=== PATIENT | female | born 2000 | race Caucasian/White ===

== ENCOUNTER 2018-09-23 20:27 | Emergency (ER) | payer SELFPAY ==
[~2018-09-23] VITALS: Ht 175.3 cm; Wt 68.0 kg
[~2018-09-23 20:27] MED LIST: OXYC-529 PO
--- NOTE | 2018-09-23 21:08 | ED Neck-Back Pain/Injury ---
General Chief Complaint: Head/Cervical Problems Stated Complaint: NECK PAIN HX OF TUMORS Nursing Triage Note: PT COMPLAINING OF LEFT NECK PAIN. STATES SHE WOKE UP TODAY AND HAS PAIN WHEN TURNING HER HEAD TO THE LEFT. Nursing Sepsis Screen: No Definite Risk History of Present Illness Date Seen by Provider: Sep 23, 2018 Time Seen by Provider: 20:50 Other Comments This is a 18-year-old female with a history of neurofibromatosis here with neck pain when turning her neck since waking today. She can turn her neck to the right side but cannot turn it to the left. She said some waxing and waning headaches although that has resolved at this time. No fever or chills. No visual change, no focal weakness, numbness, or tingling. No injury. Allergies and Home Medications Allergies Coded Allergies: No Known Drug Allergies (Unverified , 02/01/15) Home Medications Cyclobenzaprine HCl 10 Mg Tablet, 10 MG PO BID PRN for SPASMS Prescribed by: MICHAEL SILVESTRE on 09/23/18 8111 Patient Home Medication List Home Medication List Reviewed: Yes Review of Systems Constitutional: no symptoms reported EENTM: no symptoms reported Respiratory: no symptoms reported Cardiovascular: no symptoms reported Gastrointestinal: no symptoms reported Genitourinary: no symptoms reported Musculoskeletal: see HPI Skin: no symptoms reported Psychiatric/Neurological: See HPI Past Ronsveo-Ynyaml-Dqnfwj Hx Past Med/Social Hx: Reviewed Nursing Past Med/Soc Hx Patient Social History Recent Foreign Travel: No Contact w/Someone Who Travel: No Recent Infectious Disease Expo: No Recent Hopitalizations: No Immunizations Up To Date PED Vaccines UTD: Yes Seasonal Allergies Seasonal Allergies: No Past Medical History Surgeries: Yes (TUMOR FROM R EAR,LEG, AND BREAST, BRIAN FROM THROAT, TUBES IN EARS) Neurological: Yes (NEUROFIBROMATOSIS) Physical Exam Vital Signs Vital Signs - First Documented 09/23/18 20:36 Temp 97.0 Pulse 81 Resp 18 B/P (MAP) 133/98 (110) Pulse Ox 100 O2 Delivery Room Air Capillary Refill : Less Than 3 Seconds Height, Weight, BMI Height: 5'9.00" Weight: 150lbs. oz. 68.593935xa; 26.47 BMI Method:Stated General Appearance: No Apparent Distress HEENT: TMs Normal, Pharynx Normal, Moist Mucous Membranes Neck: Other (normal range of motion with rightward rotation, limited leftward rotation beyond about 10 from midline, normal flexion and extension, no adenopathy, no bruit, mild nonspecific tenderness in the right sternocleidomastoid and left trapezius ridge) Cardiovascular: Regular Rate, Rhythm, Normal Peripheral Pulses Respiratory: Lungs Clear Gastrointestinal: Non Tender, Soft Neurologic/Psychiatric: Alert, Oriented x3, No Motor/Sensory Deficits, Normal Mood/Affect, instructor physical II-XII Norm as Tested; No Abnormal Cerebellar Tests Skin: Warm/Dry Progress/Results/Core Measures Results/Orders My Orders Orders - MICHAEL SILVESTRE DO Hydrocodone/Apap 5/325 Tablet (Lortab 5 (09/23/18 21:15) Cervical Spine 3 View Or Less (09/23/18 21:02) Medications Given in ED Current Medications Medications Dose Ordered Sig/Fabrice Route Start Time Stop Time Status Last Admin Dose Admin Acetaminophen/ Hydrocodone Bitart 1 tab ONCE ONCE PO 09/23/18 21:15 09/23/18 21:16 DC 09/23/18 21:08 1 TAB Vital Signs/I&O 09/23/18 09/23/18 20:36 22:35 Temp 97.0 Pulse 81 78 Resp 18 20 B/P (MAP) 133/98 (110) 125/75 (92) Pulse Ox 100 99 O2 Delivery Room Air Room Air Blood Pressure Mean: 110 Progress Progress Note : Progress Note 18-year-old female with a history of neurofibromatosis here with atraumatic neck pain, difficulty turning her head to the left side. No neurologic deficits or headache or fever, no bruits. She is well-appearing. X-rays were obtained for low suspicion of bony abnormality like a jumped facet or pathological fracture, or for possible soft tissue swelling although physical exam was unremarkable, no difficulty swallowing or pain with swallowing. Imaging was negative. She'll follow-up with her primary care physician on Wednesday and will return for any new or worsening symptoms immediately. Departure Impression Primary Impression: Torticollis, acute Disposition: 01 HOME, SELF-CARE Condition: Stable Departure-Patient Inst. Referrals: NO,LOCAL PHYSICIAN (PCP) Primary Care Physician Patient Instructions: Torticollis, Adult Scripts Cyclobenzaprine HCl (Cyclobenzaprine HCl) 10 Mg Tablet 10 MG PO BID PRN for SPASMS for 7 Days, #20 TAB Prov: MICHAEL SILVESTRE DO 09/23/18 MICHAEL SILVESTRE DO Sep 23, 2018 21:08
[2018-09-23] MEDS ORDERED: HYDROcodone/APAP 5 MG/325 MG (LORTAB) TAB PO ONE (21:15)
--- NOTE | 2018-09-23 22:04 | Diagnostic Imaging Report ---
INDICATION: Left-sided neck pain Cervical spine AP and lateral views of the cervical spine show normal vertebral body height and alignment. 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 There is no fracture or prevertebral soft tissue swelling. 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 No acute abnormality seen. Dictated by: Dictated on workstation # [id number]
[2018-09-23] MEDS ORDERED: CYCL10TA9 PO (22:19)
[2018-09-23 22:35] VITALS: BP 125/75
== END 2018-09-23 22:35 | disposition home or self-care (01) ==
LOC: EDUNIT# 20:27 → ER FS 20:29
DX: M43.6 Torticollis (principal); Z86.69 Personal history of other diseases of the nervous system and sense organs; Z86.018 Personal history of other benign neoplasm; Z96.22 Myringotomy tube(s) status
CPT/HCPCS: 72040

== ENCOUNTER 2018-10-12 23:09 | Emergency (ER) | payer SELFPAY ==
[~2018-10-12] VITALS: Ht 175.3 cm; Wt 68.0 kg
[~2018-10-12 23:09] MED LIST changes: +CYCL10TA9 PO
[2018-10-13] MEDS ORDERED: NS IV 1000 ML 1,000 ML IV SCH (00:44)
[2018-10-13] MEDS ORDERED: ACETAMINOPHEN 500 MG TAB (TYLENOL) PO ONE (00:45)
[2018-10-13] MEDS ORDERED: KETOROLAC 30 MG/ML VIAL IVP ONE (00:45)
--- NOTE | 2018-10-13 00:52 | ED Headache ---
General Chief Complaint: Head/Cervical Problems Stated Complaint: HEADACHE Nursing Triage Note: PT STATES SHE HAS EXPERIENCED HEADACHES D/T HER TUMORS THAT HAVE BEEN CAUSING INCREASED PAIN FOR THE LAST WEEK. PT REPORTS USING A FRIENDS TRAMADOL, 20MG PO. REPORTS PAIN IS UNCHANGED. PT STATES SHE HAS BEEN EXPERIENCING DOUBLE VISION AND INTERMITTENT NAUSEA DURING THIS WEEK WELL Nursing Sepsis Screen: No Definite Risk Source: patient, other Exam Limitations: no limitations History of Present Illness Date Seen by Provider: Oct 13, 2018 Time Seen by Provider: 00:36 Initial Comments Patient presents to ER by private conveyance with chief complaint she's had a headache constantly for the past week bilateral temporal regions. It is achy, sharp, stabbing and radiates towards her back occipital. She's having no visual changes, gait instability, weakness, numbness, tingling. She has more angry and extremely more with her roommate. The last time she had a personality change she had a scan done at [facility] year and a half ago for her headache and they discovered that in addition to neurofibromatosis the patient also had a tumor which was described as brain cancer. The patient says she never followed up because her mom move 2 hours away and did not set up appointments for her. She's been using ibuprofen today with no benefit for her pain as well as tramadol which she said made the headache worse. She's having no nausea presently but she did have some earlier in the week. She denies dysuria. She's not on control. Her last menstrual period started yesterday. Other than neurofibromatosis she has no other significant medical or surgical history. 2014 the patient was seen in this ER for headaches but at the time she informed the ER doctor that she had some type of brain tumor that was told by her neurosurgeon at [facility] in [place] that they doubt that he had anything to do with her headaches. She was referred by the neurologist back to a neurosurgeon. The mother who accompanied the patient states that the headaches are not migraines but they're prescribed migraine headaches. They're also referred to pain management. She stated that the only medication that pro vided her with any relief at that time was oxycodone but they don't want her on a regularly. Allergies and Home Medications Allergies Coded Allergies: No Known Drug Allergies (Unverified , 02/01/15) Home Medications Cyclobenzaprine HCl 10 Mg Tablet, 10 MG PO BID PRN for SPASMS Prescribed by: MICHAEL SILVESTRE on 09/23/18 7486 Patient Home Medication List Home Medication List Reviewed: Yes Review of Systems Review of Systems Constitutional: No chills, No diaphoresis, No weight gain, No weight loss Eyes: Denies Blindness, Denies Blurred Vision, Denies Drainage Ears, Nose, Mouth, Throat: denies ear pain, denies ear discharge Respiratory: No cough, No short of breath Cardiovascular: No chest pain, No edema Gastrointestinal: No abdominal pain, No constipation : No LMP: Oct 12, 2018 Past Tlznpyi-Qocach-Tlxzzq Hx Patient Social History Alcohol Use: Denies Use Recreational Drug Use: No Smoking Status: Never a Smoker Recent Foreign Travel: No Contact w/Someone Who Travel: No Recent Infectious Disease Expo: No Recent Hopitalizations: No Immunizations Up To Date Tetanus Booster (TDap): Unknown PED Vaccines UTD: Yes Seasonal Allergies Seasonal Allergies: No Past Medical History Surgeries: Yes (TUMOR FROM R EAR,LEG, AND BREAST, BRIAN FROM THROAT, TUBES IN EARS) Respiratory: No Cardiac: No Neurological: Yes (NEUROFIBROMATOSIS) : No Genitourinary: No Gastrointestinal: No Musculoskeletal: No Endocrine: No HEENT: No Cancer: Yes Breast Did You Recieve Any Treatments: Yes What Type of Treatment Did You: Surgical Intervention Psychosocial: No Integumentary: No Blood Disorders: No Adverse Reaction/Blood Tranf: No Physical Exam Vital Signs Vital Signs - First Documented 10/12/18 23:29 Temp 96.7 Pulse 92 Resp 18 B/P (MAP) 134/93 (107) Pulse Ox 100 O2 Delivery Room Air Capillary Refill : Less Than 3 Seconds Height, Weight, BMI Height: 5'9.00" Weight: 150lbs. oz. 68.911253ix; 26.47 BMI Method:Stated General Appearance: WD/WN, no apparent distress HEENT: PERRL/EOMI, normal ENT inspection, TMs normal, pharynx normal Neck: non-tender, full range of motion, supple, normal inspection Cardiovascular: normal peripheral pulses, regular rate, rhythm, no edema Respiratory: lungs clear, normal breath sounds, no respiratory distress, no ac cessory muscle use Gastrointestinal: normal bowel sounds, non tender, soft Psychiatric: alert, oriented x 3 Crainal Nerves: normal hearing, normal speech, PERRL Coordination/Gait: normal gait Motor/Sensory: no motor deficit, no sensory deficit, no pronator drift Skin: normal color, warm/dry Progress/Results/Core Measures Results/Orders Lab Results Laboratory Tests Test 10/13/18 00:43 10/13/18 01:01 Range/Units Urine Color YELLOW Urine Clarity SLIGHTLY CLOUDY Urine pH 6 5-9 Urine Specific [place] 1.025 H 1.016-1.022 Urine Protein 1+ H NEGATIVE Urine Glucose (UA) NEGATIVE NEGATIVE Urine Ketones NEGATIVE NEGATIVE Urine Nitrite NEGATIVE NEGATIVE Urine Bilirubin NEGATIVE NEGATIVE Urine Urobilinogen 1 NORMAL MG/DL Urine Leukocyte Esterase 1+ H NEGATIVE Urine RBC (Auto) 5+ H NEGATIVE Urine RBC TNTC H /HPF Urine WBC 2-5 /HPF Urine Squamous Epithelial Cells 5-10 /HPF Urine Crystals NONE /LPF Urine Bacteria TRACE /HPF Urine Casts NONE /LPF Urine Mucus SMALL H /LPF Urine Culture Indicated NO Urine Opiates Screen NEGATIVE NEGATIVE Urine Oxycodone Screen NEGATIVE NEGATIVE Urine Methadone Screen NEGATIVE NEGATIVE Urine Propoxyphene Screen NEGATIVE NEGATIVE Urine Barbiturates Screen NEGATIVE NEGATIVE Ur Tricyclic Antidepressants Screen NEGATIVE NEGATIVE Urine Phencyclidine Screen NEGATIVE NEGATIVE Urine Amphetamines Screen NEGATIVE NEGATIVE Urine Methamphetamines Screen NEGATIVE NEGATIVE Urine Benzodiazepines Screen NEGATIVE NEGATIVE Urine Cocaine Screen NEGATIVE NEGATIVE Urine Cannabinoids Screen NEGATIVE NEGATIVE White Blood Count 7.5 4.3-11.0 10^3/uL Red Blood Count 4.81 4.35-5.85 10^6/uL Hemoglobin 13.4 11.5-16.0 G/DL Hematocrit 41 35-52 % Mean Corpuscular Volume 84 80-99 FL Mean Corpuscular Hemoglobin 28 25-34 PG Mean Corpuscular Hemoglobin Concent 33 32-36 G/DL Red Cell Distribution Width 12.7 10.0-14.5 % Platelet Count 326 130-400 10^3/uL Mean Platelet Volume 9.6 7.4-10.4 FL Neutrophils (%) (Auto) 50 42-75 % Lymphocytes (%) (Auto) 36 12-44 % Monocytes (%) (Auto) 11 0-12 % Eosinophils (%) (Auto) 3 0-10 % Basophils (%) (Auto) 1 0-10 % Neutrophils # (Auto) 3.8 1.8-7.8 X 10^3 Lymphocytes # (Auto) 2.7 1.0-4.0 X 10^3 Monocytes # (Auto) 0.8 0.0-1.0 X 10^3 Eosinophils # (Auto) 0.2 0.0-0.3 10^3/uL Basophils # (Auto) 0.1 0.0-0.1 10^3/uL Erythrocyte Sedimentation Rate 6 0-20 MM/HR Sodium Level 138 135-145 MMOL/L Potassium Level 4.1 3.6-5.0 MMOL/L Chloride Level 104 98-107 MMOL/L Carbon Dioxide Level 23 21-32 MMOL/L Anion Gap 11 5-14 MMOL/L Blood Urea Nitrogen 6 L 7-18 MG/DL Creatinine 0.76 0.60-1.30 MG/DL Estimat Glomerular Filtration Rate > 60 BUN/Creatinine Ratio 8 Glucose Level 91 70-105 MG/DL Calcium Level 9.4 8.5-10.1 MG/DL Corrected Calcium 9.1 8.5-10.1 MG/DL Total Bilirubin 0.4 0.1-1.0 MG/DL Aspartate Amino Transf (AST/SGOT) 13 5-34 U/L Alanine Aminotransferase (ALT/SGPT) 8 0-55 U/L Alkaline Phosphatase 59 40-136 U/L C-Reactive Protein High Sensitivity 0.02 0.00-0.50 MG/DL Total Protein 7.3 6.4-8.2 GM/DL Albumin 4.4 3.2-4.5 GM/DL My Orders Orders - MERLY CORTEZ Cbc With Automated Diff (10/13/18 00:44) Comprehensive Metabolic Panel (10/13/18 00:44) Hs C Reactive Protein (10/13/18 00:44) Erythrocyte Sedimentation Rate (10/13/18 00:44) Ct Head Wo (10/13/18 00:44) Ed Iv/Invasive Line Start (10/13/18 00:44) Ns Iv 1000 Ml (Sodium Chloride 0.9%) (10/13/18 00:44) Ketorolac Injection (Toradol Injection) (10/13/18 00:45) Acetaminophen Tablet (Tylenol Tablet) (10/13/18 00:45) Ua Culture If Indicated (10/13/18 00:56) Urine Bedside (10/13/18 00:56) Drug Screen Stat (Urine) (10/13/18 00:56) Medications Given in ED Current Medications Medications Dose Ordered Sig/Fabrice Route Start Time Stop Time Status Last Admin Dose Admin Acetaminophen 1,000 mg ONCE ONCE PO 10/13/18 00:45 10/13/18 00:46 DC 10/13/18 00:51 1,000 MG Ketorolac Tromethamine 30 mg ONCE ONCE IVP 10/13/18 00:45 10/13/18 00:46 DC 10/13/18 01:06 30 MG Vital Signs/I&O 10/12/18 23:29 Temp 96.7 Pulse 92 Resp 18 B/P (MAP) 134/93 (107) Pulse Ox 100 O2 Delivery Room Air Blood Pressure Mean: 107 Progress Progress Note #1: Time: 00:51 Progress Note Patient's having a headache so we'll start her some Toradol and Tylenol. She says in the past whenever she got a cocktail of medicines including Benadryl and either Phenergan or Compazine it made her feel like she was crawling out of her skin so we'll avoid that for now. She's never seen headache specialist. She does not follow routinely with a primary care doctor. She gives a history that a year and a half ago she was diagnosed with brain cancer but never followed up. We will is unlikely that she has a brain cancer laying dormant for a year and a half she does give a history for her roommate have some personality changes being very angry for the past week or 2 so despite being neurologically intact we will provide a CT scan of brain. Progress Note #2: Time: 02:14 Progress Note The patient's headache is significantly improved. She's not having any nausea now but will provide her with some Naprosyn and Zofran for home. We will also provide her with a list of local providers and she plans to stick around here. We have suggested that she would follow-up with one of them and get some records put together they can help figure out what seen in the past and where to go from here. We've also suggested that a referral to a headache specialist would be reasonable since her headaches seem to be long lasting and quite dysfunctional. Diagnostic Imaging Diagonstic Imaging: CT (noncontrast) Plain Films/CT/US/NM/MRI: head Comments No acute findings or intracranial process is identified. Reviewed: Reviewed by Me Departure Impression Primary Impression: Headache Qualified Codes: R51 - Headache Disposition: 01 HOME, SELF-CARE Condition: Improved Departure-Patient Inst. Decision time for Depature: 02:15 Referrals: NO,LOCAL PHYSICIAN (PCP/Family) Primary Care Physician Patient Instructions: Headache, Adult (DC), LOCAL PHYSICIAN LIST Add. Discharge Instructions: Drink plenty of fluids get sleep and use the Naprosyn up to twice daily as needed for headache control. You can also use Tylenol 1000 mg every 8 hours as needed for pain relief. Establish care with a primary care doctor and obtain records through their office so that they can review them and help you navigate what to do next. You may consider referral for a headache specialist or other appropriate referrals based on what they find out from your previous [facility] records. If you experience nausea or have vomiting then you can take one tablet of Zofran every 6 hours as needed. All discharge instructions reviewed with patient and/or family. Voiced understanding. Scripts Ondansetron (Ondansetron Odt) 4 Mg Tab.rapdis 4 MG PO Q6H PRN for NAUSEA/VOMITING, #8 TAB 0 Refills Prov: MERLY CORTEZ 10/13/18 Naproxen (Naprosyn) 500 Mg Tablet 500 MG PO BID, #30 TAB 0 Refills Prov: MERLY CORTEZ 10/13/18 MERLY CORTEZ Oct 13, 2018 00:52
[2018-10-13 01:02] LABS: BILIRUBIN,URINE NEGATIVE (NEGATIVE); CLARITY,URINE SLIGHTLY CLOUDY; COLOR,URINE YELLOW; GLUCOSE, URINE (UA) NEGATIVE (NEGATIVE); KETONES,URINE NEGATIVE (NEGATIVE); LEUKOCYTE ESTERASE ,URINE 1+ (NEGATIVE); NITRITE,URINE NEGATIVE (NEGATIVE); PH,URINE 6 (5-9); PROTEIN,URINE 1+ (NEGATIVE); UROBILINOGEN,URINE 1 MG/DL (NORMAL)
[2018-10-13 01:12] LABS: BASOPHILS # (AUTO) 0.1 10^3/uL (0.0-0.1); BASOPHILS % (AUTO) 1 % (0-10); EOSINOPHILS # (AUTO) 0.2 10^3/uL (0.0-0.3); EOSINOPHILS % (AUTO) 3 % (0-10); HEMATOCRIT 41 % (35-52); HEMOGLOBIN 13.4 G/DL (11.5-16.0); LYMPHOCYTES # (AUTO) 2.7 X 10^3 (1.0-4.0); LYMPHOCYTES % (AUTO) 36 % (12-44); MEAN CORPUSCULAR HEMOGLOBIN 28 PG (25-34); MEAN CORPUSCULAR HGB CONC 33 G/DL (32-36); MEAN CORPUSCULAR VOLUME 84 FL (80-99); MEAN PLATELET VOLUME 9.6 FL (7.4-10.4); MONOCYTES # (AUTO) 0.8 X 10^3 (0.0-1.0); MONOCYTES % (AUTO) 11 % (0-12); NEUTROPHILS # (AUTO) 3.8 X 10^3 (1.8-7.8); NEUTROPHILS % (AUTO) 50 % (42-75); PLATELET COUNT 326 10^3/uL (130-400); RED CELL DISTRIBUTION WIDTH 12.7 % (10.0-14.5); WHITE BLOOD COUNT 7.5 10^3/uL (4.3-11.0)
[2018-10-13 01:18] LABS: AMPHETAMINE SCREEN, URINE NEGATIVE (NEGATIVE); BARBITURATE SCREEN URINE NEGATIVE (NEGATIVE); BENZODIAZEPINES SCREEN URINE NEGATIVE (NEGATIVE); CANNABINOID SCREEN, URINE NEGATIVE (NEGATIVE); COCAINE SCREEN URINE NEGATIVE (NEGATIVE); METHADONE STAT NEGATIVE (NEGATIVE); METHAMPHETAMINE SCREEN URINE S NEGATIVE (NEGATIVE); OPIATE SCREEN URINE NEGATIVE (NEGATIVE); OXYCODONE STAT NEGATIVE (NEGATIVE); PROPOXYPHENE STAT NEGATIVE (NEGATIVE); TRICYCLIC ANTIDEPRESSANTS SCRE NEGATIVE (NEGATIVE)
[2018-10-13 01:19] LABS: BACTERIA,URINE TRACE /HPF; RBC,URINE TNTC /HPF
[2018-10-13 01:31] LABS: ERYTHROCYTE SEDIMENTATION RATE 6 MM/HR (0-20)
[2018-10-13 01:39] LABS: ALANINE AMINOTRANSFERASE 8 U/L (0-55); ALBUMIN 4.4 GM/DL (3.2-4.5); ALKALINE PHOSPHATASE 59 U/L (40-136); BILIRUBIN,TOTAL 0.4 MG/DL (0.1-1.0); BUN/CREATININE RATIO 8; CALCIUM 9.4 MG/DL (8.5-10.1); CARBON DIOXIDE 23 MMOL/L (21-32); CHLORIDE 104 MMOL/L (98-107); CREATININE SERUM 0.76 MG/DL (0.60-1.30); GFR ESTIMATED > 60; GLUCOSE 91 MG/DL (70-105); POTASSIUM 4.1 MMOL/L (3.6-5.0); SODIUM 138 MMOL/L (135-145); TOTAL PROTEIN 7.3 GM/DL (6.4-8.2)
[2018-10-13] MEDS ORDERED: ONDA4TAB11 PO (02:19)
[2018-10-13] MEDS ORDERED: NAPR-1071 PO (02:19)
[2018-10-13 02:26] VITALS: BP 127/93
--- NOTE | 2018-10-13 06:34 | Diagnostic Imaging Report ---
PROCEDURE: CT head without contrast. TECHNIQUE: Multiple contiguous axial images were obtained through the brain without the use of intravenous contrast. Auto Exposure Controls were utilized during the CT exam to meet ALARA standards for radiation dose reduction. INDICATION: Headache There are no prior studies available for comparison. There is no mass, shift of the midline or hemorrhage to suggest an acute intracranial abnormality. The ventricles are not abnormally dilated. The bone windows show no evidence for a fracture or for a destructive lesion. The sinuses, where visualized, are clear. The orbits are symmetrical and within normal limits. IMPRESSION: 1. There is no evidence for an acute intracranial abnormality. 2. If clinical concern regarding an underlying abnormality persists, then MRI would be recommended for further study. Dictated by: Dictated on workstation # [id number]
== END 2018-10-13 02:26 | disposition home or self-care (01) ==
LOC: EDUNIT# 23:09 → ER 23:12
DX: R51 Headache (principal); Z85.3 Personal history of malignant neoplasm of breast; Z86.018 Personal history of other benign neoplasm
CPT/HCPCS: 36415; 70450; 80053; 80306; 81000; 84703; 85025; 85652; 86141

== ENCOUNTER 2020-11-16 19:07 | Emergency (ER) | payer OTHER ==
[~2020-11-16] VITALS: Ht 172 cm; Wt 63.5 kg
[~2020-11-16 19:07] MED LIST changes: +NAPR-1071 PO; +ONDA4TAB11 PO; +OXC5T PO; -OXYC-529 PO
--- NOTE | 2020-11-16 19:27 | ED Headache ---
General Chief Complaint: Head/Cervical Problems Stated Complaint: HEADACHE, DX WITH BRAIN TUMOR Source: patient Exam Limitations: no limitations History of Present Illness Date Seen by Provider: Nov 16, 2020 Time Seen by Provider: 19:22 Initial Comments To ER with a global headache for about 3 or 4 days. No photophobia no nausea no vomiting no weakness in any extremities. No vision change no difficulty walking. She has frequent headaches. She has a history of neurofibromatosis 1. Secondary to this she has a few intracranial lesions best evaluated on FLAIR sequence MRI. These were historically stable when she followed with neurosurgery at the [facility] though she has not seen them in few years. This headache began similar to her previous headaches which was mild and progressive in nature Timing/Duration: constant Severity/Quality: moderate Location: frontal Prior Headaches/Recent Trauma: frequent headaches Associated Symptoms: denies symptoms; No confusion, No nausea/vomiting Allergies and Home Medications Allergies Coded Allergies: No Known Drug Allergies (Unverified , 02/01/15) Home Medications Cyclobenzaprine HCl 10 Mg Tablet, 10 MG PO BID PRN for SPASMS Prescribed by: MICHAEL SILVESTRE on 09/23/182218 Naproxen 500 Mg Tablet, 500 MG PO BID Prescribed by: MERLY CORTEZ on 10/13/18218 Ondansetron 4 Mg Tab.rapdis, 4 MG PO Q6H PRN for NAUSEA/VOMITING Prescribed by: MERYL CORTEZ on 10/13/18218 Patient Home Medication List Home Medication List Reviewed: Yes Review of Systems Review of Systems Constitutional: see HPI Eyes: No Symptoms Reported Ears, Nose, Mouth, Throat: no symptoms reported Respiratory: no symptoms reported Cardiovascular: no symptoms reported Genitourinary: no symptoms reported Musculoskeletal: no symptoms reported Skin: see HPI Psychiatric/Neurological: No Symptoms Reported Past [id number]-[id number]-Wsuwvg Hx Patient Social History Tobacco Use?: No Substance use?: No Alcohol Use?: No Pt feels they are or have been: No Immunizations Up To Date Tetanus Booster (TDap): Unknown PED Vaccines UTD: Yes Seasonal Allergies Seasonal Allergies: No Past Medical History Surgery/Hospitalization HX: TUMOR REMOVAL R EAR, L BREAST TUMOR. NASAL SURGERY Surgeries: Yes (TUMOR FROM R EAR,LEG, AND BREAST, BRIAN FROM THROAT, TUBES IN EARS) Respiratory: No Cardiac: No Neurological: Yes (NEUROFIBROMATOSIS) Genitourinary: No Gastrointestinal: No Musculoskeletal: No Endocrine: No HEENT: No Cancer: Yes Breast Did You Recieve Any Treatments: Yes What Type of Treatment Did You: Surgical Intervention Psychosocial: No Integumentary: No Blood Disorders: No Adverse Reaction/Blood Tranf: No Physical Exam Vital Signs Capillary Refill : Height, Weight, BMI Height: 5'9.00" Weight: 150lbs. oz. 68.774232by; 26.47 BMI Method:Stated General Appearance: WD/WN, no apparent distress HEENT: PERRL/EOMI, normal ENT inspection, TMs normal, other (Alert and oriented no distress. 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 Region [facility]) Cardiovascular: regular rate, rhythm, no murmur Respiratory: no respiratory distress, no accessory muscle use Gastrointestinal: normal bowel sounds, non tender, soft Psychiatric: alert, oriented x 3 Crainal Nerves: normal hearing, normal speech, PERRL Motor/Sensory: no motor deficit, no sensory deficit Skin: normal color, warm/dry Progress/Results/Core Measures Results/Orders My Orders Orders - CHAZ MALIK APRN Butalbital/Apap/Caffeine Tab (Fioricet T (11/16/20 19:30) Ct Head Wo (11/16/20 19:20) Departure Impression Primary Impression: Headache Additional Impression: Neurofibromatosis, type 1 Disposition: 01 HOME, SELF-CARE Condition: Stable Departure-Patient Inst. Decision time for Depature: 19:27 Referrals: NO,LOCAL PHYSICIAN (PCP/Family) Primary Care Physician Patient Instructions: Headache, Adult (DC) CHAZ MALIK APRN Nov 16, 2020 19:27
[2020-11-16] MEDS ORDERED: ACET/BUTAL/CAFF (FIORICET) TAB PO PRN (19:30)
--- NOTE | 2020-11-16 19:55 | Diagnostic Imaging Report ---
INDICATION: Headaches, known history of neurofibromatosis type I. TECHNIQUE: Multiple contiguous axial images were obtained through the brain without the use of intravenous contrast. Auto Exposure Controls were utilized during the CT exam to meet ALARA standards for radiation dose reduction. COMPARISON: Previous study of 04/17/2019. FINDINGS: There is no extra-axial fluid collection. No intracranial hemorrhage. No intracranial mass or mass effect. No midline shift. The ventricles are normal in size and position. There is no acute parenchymal abnormality in the brain by CT. Calvarial windows appear unremarkable. Orbital contents are normal. Visualized portions of the sinuses are clear. IMPRESSION: No acute intracranial abnormality is visualized. Dictated by: Dictated on workstation # [id number]
[2020-11-16 20:02] VITALS: BP 126/87
== END 2020-11-16 20:01 | disposition home or self-care (01) ==
LOC: EDUNIT# 19:07 → ER 19:11
DX: R51.9 Headache, unspecified (principal); Q85.01 Neurofibromatosis, type 1
CPT/HCPCS: 70450

== ENCOUNTER 2021-03-05 16:14 | Emergency (ER) | payer SELFPAY ==
[~2021-03-05] VITALS: Ht 172.7 cm; Wt 68.0 kg
[~2021-03-05 16:14] MED LIST changes: +CYCL10TA25 PO; -CYCL10TA9 PO
--- NOTE | 2021-03-05 17:18 | ED Lower Extremity ---
General Chief Complaint: Lower Extremity Stated Complaint: R ANKLE SWOLLEN Nursing Triage Note: AMB TO ROOM REPRTS TWISTED Rody KEARNS LAST NIGHT. Source: patient Exam Limitations: no limitations History of Present Illness Date Seen by Provider: Mar 05, 2021 Time Seen by Provider: 17:18 Allergies and Home Medications Allergies Coded Allergies: No Known Drug Allergies (Unverified , 02/01/15) Patient Home Medication List Cyclobenzaprine HCl (Cyclobenzaprine HCl) 10 Mg Tablet, 10 MG PO BID PRN for SPASMS Prescribed by: MICHAEL SILVESTRE on 09/23/182218 Naproxen (Naprosyn) 500 Mg Tablet, 500 MG PO BID Prescribed by: MERLY CORTEZ on 10/13/18218 Ondansetron (Ondansetron Odt) 4 Mg Tab.rapdis, 4 MG PO Q6H PRN for NAUSEA/VOMITING Prescribed by: MERLY CORTEZ on 10/13/18218 Past Gjekjzj-Gtugrg-Adrlum Hx Patient Social History Tobacco Use?: No Substance use?: No Alcohol Use?: No Immunizations Up To Date Tetanus Booster (TDap): Unknown PED Vaccines UTD: Yes First/Initial COVID19 Vaccinat: JAN Second COVID19 Vaccination Ander: FEB COVID19 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 NASAL SURGERY Surgeries: Yes (TUMOR FROM R EAR,LEG, AND BREAST, BRIAN FROM THROAT, TUBES IN EARS) Respiratory: No Cardiac: No Neurological: Yes (NEUROFIBROMATOSIS) Last Menstrual Period: Feb 19, 2021 Genitourinary: No Gastrointestinal: No Musculoskeletal: No Endocrine: No HEENT: No Cancer: Yes Breast Did You Recieve Any Treatments: Yes What Type of Treatment Did You: Surgical Intervention Psychosocial: No Integumentary: No Blood Disorders: No Adverse Reaction/Blood Tranf: No Physical Exam Vital Signs Vital Signs - First Documented 03/05/21 16:54 Temp 37.0 Pulse 98 Resp 18 B/P (MAP) 131/89 (103) Pulse Ox 99 O2 Delivery Room Air Capillary Refill : Less Than 3 Seconds Height, Weight, BMI Height: 5'9.00" Weight: 150lbs. oz. 68.932076ct; 22.00 BMI Method:Stated Progress/Results/Core Measures Results/Orders My Orders Orders - EDSON PERES APRN Ankle, Right, 3 Views (03/05/21 17:18) Vital Signs/I&O 03/05/21 16:54 Temp 37.0 Pulse 98 Resp 18 B/P (MAP) 131/89 (103) Pulse Ox 99 O2 Delivery Room Air Blood Pressure Mean: 103 Departure Impression Primary Impression: Fracture of distal end of fibula Disposition: HOME, SELF-CARE Condition: Improved Departure-Patient Inst. Decision time for Depature: 18:40 Referrals: DONAVON DESIR MD, MICHAEL P MD Patient Instructions: Fibula Fracture Add. Discharge Instructions: Plan: 1. Follow up with orthopedic surgeon of choice. 2. You will be non weight bearing with crutches until you follow up. 3. May take Tylenol or Ibuprofen as needed for pain per package. 4. Keep your foot elevated as much as possible for the next 72 hours to reduce swelling. 5. Avoid getting your splint wet. 6. Return for any new, concerning, or worsening symptoms. All discharge instructions reviewed with patient and/or family. Voiced understanding. EDSON PERES APRN Mar 05, 2021 17:18
--- NOTE | 2021-03-05 18:02 | Diagnostic Imaging Report ---
INDICATION: Fall. Right ankle pain. COMPARISON: None. FINDINGS: Three radiographic views of the right ankle were obtained. There is an obliquely oriented fracture involving the distal fibular shaft. This terminates above the level of the tibiotalar joint space. There is also a longitudinal oriented intra-articular fracture of the posterior malleolus of the distal tibia. There is no significant displacement of fracture fragments. Tibiotalar joint space appears appropriate. No unexpected radiopaque foreign bodies are seen. Note is made of mild to moderate overlying soft tissue swelling and edema. IMPRESSION: Acute fractures of the right tibia and fibula of the right ankle, as described above. Dictated by: Dictated on workstation # [id number]
[2021-03-05 18:55] VITALS: BP 131/89
== END 2021-03-05 18:56 | disposition home or self-care (01) ==
LOC: EDUNIT# 16:14 → ER 16:16
DX: S82.831A Other fracture of upper and lower end of right fibula, initial encounter for closed fracture (principal); X50.1XXA Overexertion from prolonged static or awkward postures, initial encounter
CPT/HCPCS: 29515; 73610

== ENCOUNTER → 2021-03-12 | Outpatient (CLI) | payer SELFPAY ==
--- NOTE | 2021-03-12 14:53 | Diagnostic Imaging Report ---
INDICATION: Right fibular fracture. TECHNIQUE/COMPARISON: AP, oblique, and lateral views of the right ankle were obtained with comparison made to the study of 03/05/2021. FINDINGS: There is no significant change in the mildly angulated fracture involving the distal fibular shaft. There may be very early callus formation; however, the fracture line remains visible. There may also be mild widening of the distal syndesmosis. The ankle joint is otherwise intact. IMPRESSION: The mildly angulated subacute fracture of the distal fibula has stable overall alignment with suggestion of widening at the level of syndesmosis. Dictated by: Dictated on workstation # [id number]
== END ==
LOC: ORTHO 11:01
PROVIDERS: ATTEND Orthopaedic Surgery
DX: S82.831A Other fracture of upper and lower end of right fibula, initial encounter for closed fracture (principal); X58.XXXA Exposure to other specified factors, initial encounter
CPT/HCPCS: 73610; G0463; 99202

== ENCOUNTER → 2021-03-26 | Outpatient (CLI) | payer SELFPAY ==
--- NOTE | 2021-03-26 15:08 | Diagnostic Imaging Report ---
INDICATION: Followup right ankle fracture. Left ankle pain. COMPARISON: 03/12/2021 FINDINGS: Multiple radiographic views of both ankles were obtained. Right ankle: Again identified is nonacute oblique linear fracture of the distal fibular shaft and fracture of the posterior malleolus of the distal tibia. There is no significant bridging callus formation or other evidence of significant interval healing. Fracture fragments are in stable alignment. Stress views shows preservation of the mortise. Left ankle: There is no acute fracture or dislocation of the left ankle. Osseous structures are intact. Joint spaces are maintained. No unexpected radiopaque foreign bodies are seen. IMPRESSION: 1. Stable exam of the right ankle showing fractures of the distal tibia and fibula as above. 2. No new acute fracture or dislocation of the left ankle. Dictated by: Dictated on workstation # [id number]
== END ==
LOC: ORTHO 09:56
PROVIDERS: ATTEND Orthopaedic Surgery
DX: S82.844D Nondisplaced bimalleolar fracture of right lower leg, subsequent encounter for closed fracture with routine healing (principal); X58.XXXD Exposure to other specified factors, subsequent encounter
CPT/HCPCS: 73610; G0463; 99213

== ENCOUNTER → 2021-03-26 | Outpatient (CLI) | payer SELFPAY ==
[2021-03-26 11:36] LABS: HEMATOCRIT 40 % (35-52); HEMOGLOBIN 12.9 g/dL (11.5-16.0); MEAN CORPUSCULAR HEMOGLOBIN 28 pg (25-34); MEAN CORPUSCULAR HGB CONC 32 g/dL (32-36); MEAN CORPUSCULAR VOLUME 87 fL (80-99); MEAN PLATELET VOLUME 9.8 fL (9.0-12.2); PLATELET COUNT 301 10^3/uL (130-400); WHITE BLOOD COUNT 8.3 10^3/uL (4.3-11.0)
[2021-03-26 11:58] LABS: CALCIUM 9.5 MG/DL (8.5-10.1); CREATININE SERUM 0.75 MG/DL (0.60-1.30); POTASSIUM 4.2 MMOL/L (3.6-5.0)
== END ==
LOC: LAB 11:19
PROVIDERS: ATTEND Orthopaedic Surgery
DX: S82.844A Nondisplaced bimalleolar fracture of right lower leg, initial encounter for closed fracture (principal); X58.XXXA Exposure to other specified factors, initial encounter
CPT/HCPCS: 36415; 80048; 85027

== ENCOUNTER 2021-03-27 05:49 | Outpatient (CLI) | payer SELFPAY ==
[~2021-03-27] VITALS: Ht 172.7 cm; Wt 64.5 kg
== END 2021-03-27 14:07 | disposition home or self-care (01) ==
LOC: PREOP 05:49
PROVIDERS: ATTEND Orthopaedic Surgery
DX: Z01.818 Encounter for other preprocedural examination (principal)

== ENCOUNTER 2021-03-31 06:11 | Day surgery (SDC) | payer SELFPAY ==
[~2021-03-31] VITALS: Ht 172.7 cm; Wt 64.5 kg
[2021-03-31] VITALS (12 sets, daily range): BP systolic 129–150; BP diastolic 69–95
[2021-03-31] MEDS ORDERED: ceFAZolin 2 GM IV Premixed 50 ML IV ONE (06:30)
[2021-03-31] MEDS: LACTATED RINGERS 1,000 ML IV PRN ×2 (06:49→10:04)
--- NOTE | 2021-03-31 06:53 | Progress Note-Pre Operative ---
Pre-Operative Progress Note H&P Reviewed The H&P was reviewed, patient examined and no changes noted. Date Seen by Provider: Mar 31, 2021 Time Seen by Provider: 07:00 Date H&P Reviewed: Mar 31, 2021 Time H&P Reviewed: 07:00 Pre-Operative Diagnosis: Fracture right fibula with syndesmosis disruption IRINA DAVIS MD Mar 31, 2021 06:53
[2021-03-31] MEDS ORDERED: MIDAZOLAM 2 MG/2 ML (VERSED) VIAL ONE (07:11)
[2021-03-31] MEDS ORDERED: fentaNYL INJ 100 MCG/2 ML AMP ONE (07:11)
[2021-03-31] MEDS ORDERED: NEO/POLY/BAC (NEOSPORIN) OINT 15 GM TUBE ONE (07:15)
[2021-03-31] MEDS ORDERED: LIDOCAINE/EPI 1%-1:200,000 (XYLOCAINE) 30 ML VIAL ONE (07:15)
[2021-03-31] MEDS ORDERED: BUPIVACAINE 0.25% 30 ML (SENSORCAINE) VIAL ONE (07:15)
[2021-03-31] MEDS ORDERED: LIDOCAINE PF 2% 5 ML (XYLOCAINE) VIAL ONE (08:00)
[2021-03-31] MEDS ORDERED: ONDANSETRON 4 MG/2 ML (SDV) Z0FRAN ONE (08:00)
[2021-03-31] MEDS ORDERED: proPOfol 200 MG/20 ML (DIPRIVAN) VIAL IV ONE ×2 (08:00→08:03)
[2021-03-31] MEDS ORDERED: PROPOFOL INJECTION 0 ML IV ONE (08:03)
[2021-03-31] MEDS ORDERED: fentaNYL INJ 250 MCG/5 ML AMP ONE (08:03)
[2021-03-31] MEDS ORDERED: ONDANSETRON 4 MG/2 ML (SDV) Z0FRAN IVP PRN (09:15)
[2021-03-31] MEDS ORDERED: MEPERIDINE (DEMEROL) INJ 50 MG/ML IVP ONE (09:15)
[2021-03-31] MEDS ORDERED: HYDROcodone/APAP 5 MG/325 MG (LORTAB) TAB PO PRN (09:15)
[2021-03-31] MEDS ORDERED: morphine INJ 10 MG/ML 1ML (SYR OR VIAL) IVP ONE (09:15)
[2021-03-31] MEDS ORDERED: fentaNYL INJ 100 MCG/2 ML AMP IVP ONE (09:15)
[2021-03-31] MEDS ORDERED: SEVOFLURANE (ULTANE) 15 ML INHAL SOLN ONE (09:17)
--- NOTE | 2021-03-31 09:24 | Operative Report - Ortho ---
Operative Report Surgeon (s)/Order Packer Or Packager (s) Surgeon IRINA DAVIS MD Order Packer Or Packager n/a Pre-Operative Diagnosis Fracture right fibula with syndesmosis disruption Post-Operative Diagnosis same Operative Report Date of Procedure: Mar 31, 2021 Name of Procedure Performed: Open reduction internal fixation right distal fibular shaft fracture with syndesmotic stabilization Description & Findings The patient was seen in the preop area and there were no questions or concerns. The leg was marked. She has been n.p.o. since midnight. The patient was taken to the operating room and placed on the operating room table. After administration of general anesthesia a tourniquet was placed on the right thigh. The right foot and lower leg were then prepped and draped in usual sterile manner. The patient was given Ancef 2 g IV preoperativelyThe tourniquet was elevated to 250 mmHg after elevation of the leg for several minutes during prepping. An incision was made over the distal fibula. This was taken down through subtenons tissue. Bleeders were cauterized. The soft tissue was elevated off the distal fibula to the fracture site and above. The fracture site showed some early callus and this was taken down with a curette. The fracture was then mobilized and reduced with a reduction clamp. An 8 hole semitubular plate plate was fashioned to fit the distal fibula. This was secured with a cortical screw distal and proximal to the fracture site. Image was used to visualize the reduction and placement of the plate and screws. Next a second screw was placed proximal to the fracture. Then 2 syndesmotic screws were placed approximately 1.5 cm above the ankle joint then proximal to this through the plate. These were drilled measured and appropriate length screws were placed. This included all 4 cortices. This showed stabilization and reduction of the syndesmosis. This point and additional screws were placed proximally so 3 cortical screws proximally and 1 cortical screw distal with 2 syndesmotic screws distally. The fracture orientation did not allow for a compression screw across fracture site.The fracture was oblique but had a small thin fragment posteriorly. At this point the tourniquet was deflated after 38 minutes. Minimal bleeding was noted. The wound was irrigated with normal saline. The deep layer was closed with 0 Vicryl. Subcutaneous tissue with 2-0 Vicryl. Skin with skin jose. The wound was injected with approximately 45 to 50 mL of 0.25% Marcaine plain with 1% Xylocaine with epinephrine, 50-50.The wound was dressed with antibiotic ointment, Adaptic and 4 x 4's and wrapped with web roll. A posterior and sugar tong splint was then applied to the leg with Ean wraps over the splints. Patient was then transferred to recovery room in good condition she tolerated procedure well. The patient would like to be discharged from postop outpatient surgery. If he is comfortable I feel she can go home. Continue with crutches nonweightbearing. Continue elevation and ice. She was E scribed hydrocodone 5/325 #40 and she can take 1-2 every 4 hours as needed pain. She has a follow-up appointment on Monday 04/02. Call if she has any problems or questions. If she is having increased pain we will keep her overnight for observation. n/a Anesthesia Type General Estimated Blood Loss 30 mL Packing none. Specimen(s) collected/removed None IRINA DAVIS MD Mar 31, 2021 09:24
[2021-03-31] MEDS ORDERED: KETOROLAC 30 MG/ML VIAL ONE (09:35)
[2021-03-31] MEDS ORDERED: KETOROLAC 30 MG/ML VIAL IVP ONE (09:45)
--- NOTE | 2021-03-31 10:08 | Anesthesia-General Post-Op ---
General Patient Condition Mental Status/LOC: Same as Preop Cardiovascular: Satisfactory Nausea/Vomiting: Absent Respiratory: Satisfactory Pain: Controlled Complications: Absent Post Op Complications Complications None Follow Up Care/Instructions Patient Instructions None needed. Anesthesia/Patient Condition Patient Condition Patient is doing well, no complaints, stable vital signs, no apparent adverse anesthesia problems. No complications reported per nursing. CASSIDY CID CRNA Mar 31, 2021 10:08
--- NOTE | 2021-03-31 10:26 | Diagnostic Imaging Report ---
INDICATION: Fluoroscopy for right ankle ORIF. FINDINGS: Fluoroscopy was provided in the OR during right ankle ORIF. There is a lateral plate and numerous screws transfixing the distal fibula. There are two fully threaded syndesmotic screws. 43 seconds of fluoroscopic time was utilized. 3D images were obtained. IMPRESSION: Fluoroscopy for right ankle ORIF. Dictated by: Dictated on workstation # [id number]
[2021-03-31] MEDS ORDERED: ACHD5005 PO (11:15)
== END 2021-03-31 11:30 | disposition home or self-care (01) ==
LOC: SDC 06:11
PROVIDERS: ATTEND Orthopaedic Surgery
DX: S82.844A Nondisplaced bimalleolar fracture of right lower leg, initial encounter for closed fracture (principal); S93.431A Sprain of tibiofibular ligament of right ankle, initial encounter; W10.1XXA Fall (on)(from) sidewalk curb, initial encounter; Z79.891 Long term (current) use of opiate analgesic; Z79.1 Long term (current) use of non-steroidal anti-inflammatories (NSAID); Z79.899 Other long term (current) drug therapy
CPT/HCPCS: 27792; 27829; 76000; 84703; 87081; C1713 ×4

== ENCOUNTER → 2021-04-02 | Outpatient (CLI) | payer SELFPAY ==
[~2021-04-02] MED LIST changes: +ACHD5005 PO
== END ==
LOC: ORTHO 11:17
PROVIDERS: ATTEND Orthopaedic Surgery
DX: S82.842A Displaced bimalleolar fracture of left lower leg, initial encounter for closed fracture (principal); X58.XXXA Exposure to other specified factors, initial encounter

== ENCOUNTER → 2021-04-14 | Outpatient (CLI) | payer SELFPAY ==
--- NOTE | 2021-04-14 10:32 | Diagnostic Imaging Report ---
EXAMINATION: Right ankle at 10:25 AM. INDICATION: Ankle pain, followup fracture. TECHNIQUE: Three views were obtained. FINDINGS: The previous exam of 03/12/2021 noted a mildly angulated subacute fracture of the distal fibula. In the interval since the prior study, the patient has undergone a surgical procedure. There is now an orthopedic plate and screw fixation device along the lateral aspect of the distal fibula. Two orthopedic fixation screws are also seen traversing both the distal tibia and fibula. The orthopedic hardware appears to be in good position. The main fracture fragments are near anatomic in alignment and the fracture line itself is only barely visible. No other fracture or acute bony abnormality is appreciated. The ankle mortise is not widened and the talar dome is smooth. The soft tissues are generally unremarkable. There are skin jose along the lateral aspect of the ankle joint. IMPRESSION: 1. There has been an interval surgical procedure. The orthopedic hardware appears to be in good position and the main fracture fragments of the distal fibula are near anatomic in alignment. 2. There is no acute bony abnormality noted. Dictated by: Dictated on workstation # [id number]
== END ==
LOC: ORTHO 09:57
PROVIDERS: ATTEND Orthopaedic Surgery
DX: S82.844D Nondisplaced bimalleolar fracture of right lower leg, subsequent encounter for closed fracture with routine healing (principal); X58.XXXD Exposure to other specified factors, subsequent encounter
CPT/HCPCS: 73610

== ENCOUNTER → 2021-04-28 | Outpatient (CLI) | payer SELFPAY ==
--- NOTE | 2021-04-28 10:36 | Diagnostic Imaging Report ---
INDICATION: Closed fracture of right ankle. TECHNIQUE/COMPARISON: AP, oblique, and lateral views of the right ankle were obtained with comparison made to the study of 04/14/2021. FINDINGS: The lateral fibular fixation plate and syndesmotic screws remain in place. There has been an increase in callus about the distal fibular shaft. The ankle mortise appears to be intact. There is osseous demineralization about the midfoot and hindfoot. IMPRESSION: Healing internally fixed distal fibular shaft fracture without evidence of acute abnormality or complication. Dictated by: Dictated on workstation # [id number]
== END ==
LOC: ORTHO 10:17
PROVIDERS: ATTEND Orthopaedic Surgery
DX: S82.844D Nondisplaced bimalleolar fracture of right lower leg, subsequent encounter for closed fracture with routine healing (principal); X58.XXXD Exposure to other specified factors, subsequent encounter
CPT/HCPCS: 73610

== ENCOUNTER → 2021-05-12 | Outpatient (CLI) | payer SELFPAY ==
[~2021-05-12] MED LIST changes: +FLUT9.9S NS; +LORA1TAB59 PO; +MECL-149 PO; +SCOP1PAT10 TD
--- NOTE | 2021-05-12 10:31 | Diagnostic Imaging Report ---
INDICATION: Ankle fracture. Followup ORIF. COMPARISON: 04/28/2021 FINDINGS: Multiple radiographic views of the right ankle were obtained and again show postsurgical changes of previous ORIF. Orthopedic side plate and screws are again identified along the lateral distal margins of the fibula. 2 syndesmotic screws are also present. These remain in appropriate position. There is no evidence of periprosthetic fracture or failure. Subtle deformity of the distal fibula is noted consistent with partially healed nonacute fracture. No new acute fracture or dislocation of the right ankle is identified. Tibiotalar joint space is within normal limits. IMPRESSION: 1. Nonacute fracture and expected postsurgical changes of previous right ankle ORIF as above. Dictated by: Dictated on workstation # [id number]
== END ==
LOC: ORTHO 09:47
PROVIDERS: ATTEND Orthopaedic Surgery
DX: S82.844D Nondisplaced bimalleolar fracture of right lower leg, subsequent encounter for closed fracture with routine healing (principal); Z98.890 Other specified postprocedural states; X58.XXXD Exposure to other specified factors, subsequent encounter
CPT/HCPCS: 73610

== ENCOUNTER 2021-05-13 22:23 | Emergency (ER) | payer SELFPAY ==
[~2021-05-13] VITALS: Ht 172 cm; Wt 64.5 kg
[~2021-05-13 22:23] MED LIST changes: -FLUT9.9S NS; -LORA1TAB59 PO; -MECL-149 PO; -SCOP1PAT10 TD
[2021-05-13] MEDS ORDERED: ONDANSETRON 4 MG/2 ML (SDV) Z0FRAN IVP ONE (23:00)
--- NOTE | 2021-05-13 23:18 | ED General ---
General Chief Complaint: Dizziness/Syncope Stated Complaint: HIGH BLOOD PRESSURE, VOMITING, DIZZINESS Nursing Triage Note: PT AMB TO ER WITH C/O DIZZINESS, NAUSEA AND SOB FOR "A WHILE". PT WAS - FOR COVID 4 DAYS AGO. PT ALSO HAD TIB/FIB SURGERY APR 07 Source of Information: Patient History of Present Illness Date Seen by Provider: May 13, 2021 Time Seen by Provider: 22:55 Initial Comments PT ARRIVES VIA POV FROM HOME PT WITH MULTIPLE COMPLAINTS STATES SHE HAS BEEN DIZZY AND NAUSEATED FOR 1 1/2 MONTHS, WORSE THE LAST 2 WEEKS HAS ALSO BEEN HAVING HEADACHES FOR 1 1/2 MONTHS ( CHRONIC HEADACHE COMPLAINTS FOR YEARS) HAS BEEN A LITTLE SHORT OF BREATH FOR THE LAST COUPLE OF WEEKS NO CHEST PAIN NO PALPITATIONS NO COUGH NO FEVER/SWEATS/CHILLS NO BODY ACHES NO LOSS OF TASTE OR SMELL HAS BEEN HAVING VOMITING AND DIARRHEA FOR THE LAST FEW DAYS--VOMITED X 12 --2 DAYS AGO, VOMITED X 1 TODAY; DIARRHEA X 1-2 TIMES TODAY NO ABDOMINAL PAIN NO PROBLEMS EATING OR DRINKING VOIDING A NORMAL AMOUNT AND NO URINARY SYMPTOMS LMP 1 1/2 WEEKS AGO, NORMAL. NO CONTROL DENIES CHRONIC ILLNESSES, BUT HAS NEUROFIBROMATOSIS PER OLD CHART. DOES NOT TAKE ANY DAILY MEDICATIONS PT SUSTAINED A RIGHT FIBULA FRACTURE 03/05/21 AND HAD SURGERY 03/31/21 WITH ORIF, AND PT IS STILL WEARING A BOOT. PT WAS SEEN AT [facility] YESTERDAY FOR THIS PROBLEM AND WAS TOLD SHE HAD FLUID ON HER EARS AND WAS PRESCRIBED STEROIDS, TOOK FIRST DOSE TODAY . DENIES ANY EAR SYMPTOMS OR URI/SINUS SYMPTOMS. NO SORE THROAT. HAS NOT SOUGHT CARE AT ANY OTHER TIME FOR THIS PROBLEM STATES SHE HAD A NEGATIVE COVID-19 TEST LAST Wednesday05/08/21 AT [facility]. PT HAS HAD COVID-19 VACCINE X 2. LAST ONE 02/2021. NO BOOSTER VACCINE NO FLU VACCINE PCP: [facility] Allergies and Home Medications Allergies Coded Allergies: No Known Drug Allergies (Unverified , 02/01/15) Patient Home Medication List Home Medication List Reviewed: Yes Fluticasone Propionate (Flonase Allergy Relief) 9.9 Ml [place].susp, 2 SPRAY NS DAILY Prescribed by: BREEZY BELRTE on 05/14/21 0105 Hydrocodone/Acetaminophen (Hydrocodone-Acetamin 5-325 mg) 1 Each Tablet, 1-2 TAB PO Q4H PRN for PAIN-MODERATE (5-7) Prescribed by: ROBBIE BREEN on 03/31/21 1115 Loratadine/Pseudoephedrine (Claritin-D 12 Hour Tablet) 1 Each Tab.er.12h, 1 EACH PO BID Prescribed by: BREEZY BELTRE on 05/14/21104 Meclizine HCl (Meclizine HCl) 25 Mg Tablet, 50 MG PO Q6 PRN for DIZZINESS Prescribed by: BREEZY BELTRE on 05/14/21104 Scopolamine (Transderm-Scop) 1 Each Patch.td72, 1 EACH TD Q72H Prescribed by: BREEZY BELTRE on 05/14/21104 Review of Systems Review of Systems Constitutional: see HPI; No chills, No diaphoresis; dizziness; No fever, No malaise, No weakness EENTM: see HPI Respiratory: see HPI; No cough; short of breath Cardiovascular: no symptoms reported; No chest pain, No edema, No palpitations, No syncope Gastrointestinal: see HPI; No abdominal pain; diarrhea; No loss of appetite; nausea, vomiting Genitourinary: no symptoms reported Musculoskeletal: no symptoms reported Skin: no symptoms reported Psychiatric/Neurological: See HPI Hematologic/Lymphatic: No Symptoms Reported Immunological/Allergic: no symptoms reported Past Yscbqbj-Prciag-Lcgxmg Hx Patient Social History Tobacco Use?: No Substance use?: No Alcohol Use?: No Pt feels they are or have been: No Immunizations Up To Date Tetanus Booster (TDap): Unknown PED Vaccines UTD: Yes Influenza Vaccine Up-to-Date: No; Not Current First/Initial COVID19 Vaccinat: JAN Second COVID19 Vaccination Ander: FEB Third COVID19 Vaccination Date: JAN 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 R FIBULA FX 03/08/21 WITH SURGERY/ORIF 03/31/[address] DAVIS Surgeries: Yes (TUMOR FROM R EAR,LEG, AND BREAST, BRIAN FROM THROAT, TUBES IN EARS) Breast, Ear Surgery, Nose, Orthopedic Respiratory: No Currently Using CPAP: No Currently Using BIPAP: No Cardiac: No Neurological: Yes (NEUROFIBROMATOSIS) Last Menstrual Period: May 05, 2021 Genitourinary: No Gastrointestinal: No Musculoskeletal: Yes (RIGHT FIBULA FX 03/05/21-SURGERY 03/31/[address] DAVIS) Fractures Endocrine: No HEENT: Yes (EAR SURGERY) Cancer: No Psychosocial: No Integumentary: No Blood Disorders: No Adverse Reaction/Blood Tranf: No Physical Exam Vital Signs Vital Signs - First Documented 05/13/21 22:55 Temp 36.7 Pulse 80 Resp 17 B/P (MAP) 138/87 (104) Capillary Refill : Height, Weight, BMI Height: 5'9.00" Weight: 150lbs. oz. 68.905578ns; 21.00 BMI Method:Stated General Appearance: No Apparent Distress, WD/WN, Other (DOES NOT APPEAR ILL OR TO BE IN ANY DISCOMFORT OR DISTRESS) HEENT: PERRL/EOMI, Pharynx Normal, Moist Mucous Membranes, Other (RIGHT EAC AND TM OBSCURED BY LARGE NEUROFIBROMA. LEFT TM WITH EFFUSION. ) Neck: Full Range of Motion, Normal Inspection, Non Tender, Supple Respiratory: Normal Breath Sounds, No Accessory Muscle Use, No Respiratory Distress Cardiovascular: Regular Rate, Rhythm, No Edema, No JVD, No Murmur, Normal Peripheral Pulses Gastrointestinal: Normal Bowel Sounds, No Organomegaly, No Pulsatile Mass, Non Tender, Soft Back: Normal Inspection, No CVA Tenderness, No Vertebral Tenderness Extremity: Normal Capillary Refill, Normal Inspection, Normal Range of Motion, Non Tender, No Calf Tenderness, No Pedal Edema Neurologic/Psychiatric: Alert, Oriented x3, No Motor/Sensory Deficits, Normal Mood/Affect, supervisor public health nursing II-XII Norm as Tested; No Abnormal Cerebellar Tests Skin: Normal Color (DARK SKINNED); No Rash; Tattoos/Piercings (TATTOOS), Other (EXTENSIVE NEUROFIBROMAS OVER MOST OF BODY. ) Progress/Results/Core Measures Suspected Sepsis SIRS Temperature: Pulse: 80 Respiratory Rate: 17 Laboratory Tests 05/13/21 23:18: White Blood Count 9.4 Blood Pressure 138 /87 Mean: 104 Laboratory Tests 05/13/21 23:18: Creatinine 0.73, INR Comment 1.1, Platelet Count 307, Total Bilirubin 0.5 Results/Orders Lab Results Laboratory Tests Test 05/13/21 23:18 05/13/21 23:34 Range/Units White Blood Count 9.4 4.3-11.0 10^3/uL Red Blood Count 4.50 3.80-5.11 10^6/uL Hemoglobin 12.7 11.5-16.0 g/dL Hematocrit 38 35-52 % Mean Corpuscular Volume 85 80-99 fL Mean Corpuscular Hemoglobin 28 25-34 pg Mean Corpuscular Hemoglobin Concent 33 32-36 g/dL Red Cell Distribution Width 12.4 10.0-14.5 % Platelet Count 307 130-400 10^3/uL Mean Platelet Volume 9.7 9.0-12.2 fL Immature Granulocyte % (Auto) 0 % Neutrophils (%) (Auto) 84 H 42-75 % Lymphocytes (%) (Auto) 12 12-44 % Monocytes (%) (Auto) 3 0-12 % Eosinophils (%) (Auto) 0 0-10 % Basophils (%) (Auto) 0 0-10 % Neutrophils # (Auto) 7.9 H 1.8-7.8 10^3/uL Lymphocytes # (Auto) 1.2 1.0-4.0 10^3/uL Monocytes # (Auto) 0.3 0.0-1.0 10^3/uL Eosinophils # (Auto) 0.0 0.0-0.3 10^3/uL Basophils # (Auto) 0.0 0.0-0.1 10^3/uL Immature Granulocyte # (Auto) 0.0 0.0-0.1 10^3/uL Prothrombin Time 14.4 12.2-14.7 SEC INR Comment 1.1 0.8-1.4 Activated Partial Thromboplast Time 36 H 24-35 SEC D-Dimer 0.10 0.00-0.49 UG/ML Sodium Level 135 135-145 MMOL/L Potassium Level 4.4 3.6-5.0 MMOL/L Chloride Level 104 98-107 MMOL/L Carbon Dioxide Level 20 L 21-32 MMOL/L Anion Gap 11 5-14 MMOL/L Blood Urea Nitrogen 6 L 7-18 MG/DL Creatinine 0.73 0.60-1.30 MG/DL Estimat Glomerular Filtration Rate 118 BUN/Creatinine Ratio 8 Glucose Level 115 H 70-105 MG/DL Calcium Level 9.3 8.5-10.1 MG/DL Corrected Calcium 9.1 8.5-10.1 MG/DL Magnesium Level 2.2 1.6-2.4 MG/DL Total Bilirubin 0.5 0.1-1.0 MG/DL Aspartate Amino Transf (AST/SGOT) 14 5-34 U/L Alanine Aminotransferase (ALT/SGPT) 12 0-55 U/L Alkaline Phosphatase 50 40-136 U/L B-Type Natriuretic Peptide 10.0 <100.0 PG/ML Total Protein 7.5 6.4-8.2 GM/DL Albumin 4.3 3.2-4.5 GM/DL Amylase Level 45 25-125 U/L Lipase 17 8-78 U/L Serum Test, Qualitative NEGATIVE NEGATIVE Urine Color YELLOW Urine Clarity CLEAR Urine pH 8.5 5-9 Urine Specific [place] 1.015 L 1.016-1.022 Urine Protein NEGATIVE NEGATIVE Urine Glucose (UA) NEGATIVE NEGATIVE Urine Ketones NEGATIVE NEGATIVE Urine Nitrite NEGATIVE NEGATIVE Urine Bilirubin NEGATIVE NEGATIVE Urine Urobilinogen 0.2 < = 1.0 MG/DL Urine Leukocyte Esterase 1+ H NEGATIVE Urine RBC (Auto) NEGATIVE NEGATIVE Urine RBC NONE /HPF Urine WBC 2-5 /HPF Urine Squamous Epithelial Cells 2-5 /HPF Urine Crystals NONE /LPF Urine Bacteria TRACE /HPF Urine Casts NONE /LPF Urine Mucus SMALL H /LPF Urine Culture Indicated NO Urine Opiates Screen NEGATIVE NEGATIVE Urine Oxycodone Screen NEGATIVE NEGATIVE Urine Methadone Screen NEGATIVE NEGATIVE Urine Propoxyphene Screen NEGATIVE NEGATIVE Urine Barbiturates Screen NEGATIVE NEGATIVE Ur Tricyclic Antidepressants Screen NEGATIVE NEGATIVE Urine Phencyclidine Screen NEGATIVE NEGATIVE Urine Amphetamines Screen NEGATIVE NEGATIVE Urine Methamphetamines Screen NEGATIVE NEGATIVE Urine Benzodiazepines Screen NEGATIVE NEGATIVE Urine Cocaine Screen NEGATIVE NEGATIVE Urine Cannabinoids Screen NEGATIVE NEGATIVE My Orders Orders - BREEZY BELTRE DO Ed Iv/Invasive Line Start (05/13/21 23:00) Monitor-Rhythm Ecg Trace Only (05/13/21 23:00) Ct Head Wo-R/O Stroke (05/13/21 23:00) Amylase (05/13/21 23:00) Cbc With Automated Diff (05/13/21 23:00) Comprehensive Metabolic Panel (05/13/21 23:00) Drug Screen Stat (Urine) (05/13/21 23:00) Lipase (05/13/21 23:00) Magnesium (05/13/21 23:00) Protime With Inr (05/13/21 23:00) Partial Thromboplastin Time (05/13/21 23:00) Ua Culture If Indicated (05/13/21 23:00) Influenza A & B Antigens (05/13/21 23:00) Ondansetron Injection (Zofran Injectio (05/13/21 23:00) Coronavirus Sars-Cov-2 So 2019 (05/13/21 23:00) Bnp [place] (05/13/21 23:00) Fibrin Degradation Products (05/13/21 23:00) Hcg,Qualitative Serum (05/13/21 23:00) Ekg Tracing (05/13/21 23:00) Chest 1 View, Ap/Pa Only (05/14/21 00:01) Ct Angio Chest W (05/14/21 00:01) Iohexol Injection (Omnipaque 350 Mg/Ml 1 (05/14/21 00:45) Received Contrast (Hold Metformin- Contr (05/14/21 00:45) Sodium Chloride Flush (Catheter Flush Sy (05/14/21 00:45) Ns (Ivpb) (Sodium Chloride 0.9% Ivpb Bag (05/14/21 00:45) Meclizine Tablet (Antivert Tablet) (05/14/21 01:15) Scopolamine Patch (Transderm-Scop Patch) (05/14/21 01:15) Medications Given in ED Current Medications Medications Dose Ordered Sig/Fabrice Route Start Time Stop Time Status Last Admin Dose Admin Iohexol 75 ml ONCE ONCE IV 05/14/21 00:45 05/14/21 00:46 DC 05/14/21 00:41 75 ML Ondansetron HCl 4 mg ONCE ONCE IVP 05/13/21 23:00 05/13/21 23:05 DC 05/13/21 23:27 4 MG Sodium Chloride 10 ml NEEDED PRN IV 05/14/21 00:45 05/14/21 00:41 10 ML Sodium Chloride 100 ml ONCE ONCE IV 05/14/21 00:45 05/14/21 00:46 DC 05/14/21 00:41 80 ML Vital Signs/I&O 05/13/21 22:55 Temp 36.7 Pulse 80 Resp 17 B/P (MAP) 138/87 (104) Capillary Refill : Blood Pressure Mean: 104 Progress Note : Progress Note PPE WORN COVID-19 AND FLU TESTING DONE GIVEN IV FLUIDS AND NAUSEA MEDICATION ALSO GIVEN ANTIVERT AND SCOPOLAMINE FOR DIZZINESS UNEVENTFUL ER STAY ECG Initial ECG Impression Date: May 13, 2021 Initial ECG Impression Time: 23:26 Initial ECG Rate: 82 Initial ECG Rhythm: Normal Sinus Diagnostic Imaging Comments CXR--NO ACUTE PROCESS, PENDING RADIOLOGIST REVIEW CT HEAD--NORMAL/NO ACUTE PROCESS, PER [facility] VIA FAX AT [address]49 CT CHEST ANGIOGRAM--NO ACUTE PROCESS, PER [facility] VIA FAX AT 0052 Reviewed: Reviewed by Me Departure Impression Primary Impression: Serous otitis media Additional Impressions: Neurofibromatosis Dizziness Chronic headache Disposition: HOME, SELF-CARE Condition: Stable Departure-Patient Inst. Decision time for Depature: 01:00 Referrals: ROYAL STEVENSON MD NO,LOCAL PHYSICIAN (PCP) Primary Care Physician [facility] Patient Instructions: Dizziness, Adult ED, Serous Otitis Media Add. Discharge Instructions: SCOPOLAMINE PATCH TO REMAIN IN PLACE FOR 72 HOURS SLOW POSITION CHANGES CONTINUE STEROIDS PRESCRIBED FOLLOW UP WITH [facility] IN 5-7 DAYS FOR FURTHER CARE FOLLOW UP WITH DR. STEVENSON, ENT, FOR FURTHER EVALUATION All discharge instructions reviewed with patient and/or family. Voiced understanding. Scripts Fluticasone Propionate (Flonase Allergy Relief) 9.9 Ml [place].susp 2 SPRAY NS DAILY, #1 EACH 2 SPRAYS PER NOSTRIL DAILY X 2 DAYS THEN 1 SPRAY DAILY Prov: BREEZY BELTRE DO 05/14/21 Loratadine/Pseudoephedrine (Claritin-D 12 Hour Tablet) 1 Each Tab.er.12h 1 EACH PO BID, #30 TAB Prov: BREEZY BELTRE K DO 05/14/21 Meclizine HCl (Meclizine HCl) 25 Mg Tablet 50 MG PO Q6 PRN for DIZZINESS, #15 TAB Prov: ALEXSANDERBREEZY K DO 05/14/21 Scopolamine (Transderm-Scop) 1 Each Patch.td72 1 EACH TD Q72H, #3 PATCH Prov: ALEXSANDERRAVENA K DO 05/14/21 RAVEN BELTREA K May 13, 2021 23:18
[2021-05-13 23:26] LABS: BASOPHILS % (AUTO) 0 % (0-10); EOSINOPHILS % (AUTO) 0 % (0-10); HEMATOCRIT 38 % (35-52); HEMOGLOBIN 12.7 g/dL (11.5-16.0); LYMPHOCYTES # (AUTO) 1.2 10^3/uL (1.0-4.0); LYMPHOCYTES % (AUTO) 12 % (12-44); MEAN CORPUSCULAR HEMOGLOBIN 28 pg (25-34); MEAN CORPUSCULAR HGB CONC 33 g/dL (32-36); MEAN CORPUSCULAR VOLUME 85 fL (80-99); MEAN PLATELET VOLUME 9.7 fL (9.0-12.2); MONOCYTES # (AUTO) 0.3 10^3/uL (0.0-1.0); MONOCYTES % (AUTO) 3 % (0-12); NEUTROPHILS # (AUTO) 7.9 10^3/uL (1.8-7.8); NEUTROPHILS % (AUTO) 84 % (42-75); PLATELET COUNT 307 10^3/uL (130-400); WHITE BLOOD COUNT 9.4 10^3/uL (4.3-11.0)
[2021-05-13 23:38] LABS: ALBUMIN 4.3 GM/DL (3.2-4.5); POTASSIUM 4.4 MMOL/L (3.6-5.0)
[2021-05-13 23:39] LABS: CALCIUM 9.3 MG/DL (8.5-10.1)
[2021-05-13 23:40] LABS: BILIRUBIN,URINE NEGATIVE (NEGATIVE); CLARITY,URINE CLEAR; COLOR,URINE YELLOW; GLUCOSE, URINE (UA) NEGATIVE (NEGATIVE); KETONES,URINE NEGATIVE (NEGATIVE); LEUKOCYTE ESTERASE ,URINE 1+ (NEGATIVE); NITRITE,URINE NEGATIVE (NEGATIVE); PH,URINE 8.5 (5-9); PROTEIN,URINE NEGATIVE (NEGATIVE)
[2021-05-13 23:40] LABS: TOTAL PROTEIN 7.5 GM/DL (6.4-8.2)
[2021-05-13 23:42] LABS: BILIRUBIN,TOTAL 0.5 MG/DL (0.1-1.0)
[2021-05-13 23:44] LABS: CREATININE SERUM 0.73 MG/DL (0.60-1.30)
[2021-05-13 23:47] LABS: MAGNESIUM 2.2 MG/DL (1.6-2.4)
[2021-05-13 23:54] LABS: AMPHETAMINE SCREEN, URINE NEGATIVE (NEGATIVE); BARBITURATE SCREEN URINE NEGATIVE (NEGATIVE); BENZODIAZEPINES SCREEN URINE NEGATIVE (NEGATIVE); CANNABINOID SCREEN, URINE NEGATIVE (NEGATIVE); COCAINE SCREEN URINE NEGATIVE (NEGATIVE); METHADONE STAT NEGATIVE (NEGATIVE); METHAMPHETAMINE SCREEN URINE S NEGATIVE (NEGATIVE); OPIATE SCREEN URINE NEGATIVE (NEGATIVE); OXYCODONE STAT NEGATIVE (NEGATIVE); PROPOXYPHENE STAT NEGATIVE (NEGATIVE); TRICYCLIC ANTIDEPRESSANTS SCRE NEGATIVE (NEGATIVE)
[2021-05-13 23:55] LABS: BACTERIA,URINE TRACE /HPF
[2021-05-13 23:55] LABS: FIBRIN DEGRADATION PRODUCTS 0.1 UG/ML (0.00-0.49); INR 1.1 (0.8-1.4); PROTHROMBIN TIME PATIENT 14.4 SEC (12.2-14.7)
[2021-05-14] MEDS ORDERED: IOHEXOL 350 MG/ML 100 ML (OMNIPAQUE 350) VIAL IV ONE (00:45)
[2021-05-14] MEDS ORDERED: NS 100 ML (IVPB) BAG IV ONE (00:45)
[2021-05-14] MEDS ORDERED: CATHETER FLUSH 10 ML SYR IV PRN (00:45)
[2021-05-14] MEDS ORDERED: HOLD METFORMIN - RECEIVED CONTRAST 20 ML VIAL IV SCH (00:45)
[2021-05-14] MEDS ORDERED: FLUT9.9S NS (01:05)
[2021-05-14] MEDS ORDERED: MECL-149 PO (01:05)
[2021-05-14] MEDS ORDERED: SCOP1PAT10 TD (01:05)
[2021-05-14] MEDS ORDERED: LORA1TAB59 PO (01:05)
[2021-05-14] MEDS ORDERED: SCOPOLAMINE 1.5 MG (TRANSDERM-SCOP) PATCH TD ONE (01:15)
[2021-05-14] MEDS ORDERED: MECLIZINE 25 MG (ANTIVERT) TAB PO ONE (01:15)
[2021-05-14 01:20] VITALS: BP 125/90
--- NOTE | 2021-05-14 07:35 | Diagnostic Imaging Report ---
INDICATION: Dyspnea and dizzy. FINDINGS: Portable chest. The lungs are well-aerated and clear. Heart is not enlarged. No pleural effusions. No mediastinal or hilar adenopathy of pathologic size. IMPRESSION: Normal portable chest. Dictated by: Dictated on workstation # [id number]
--- NOTE | 2021-05-14 07:35 | Diagnostic Imaging Report ---
INDICATION: Dizziness. Nausea. TECHNIQUE: Routine non contrast-enhanced axial images were obtained from the skull base to the vertex. Auto Exposure Controls were utilized during the CT exam to meet ALARA standards for radiation dose reduction COMPARISON: None. FINDINGS: The ventricles and cortical sulci are normal in size and contour. There is no midline shift or mass-effect. No acute intra-axial hemorrhage is seen. There are no abnormal areas of increased or decreased density to suggest acute hemorrhage or edema. No extra-axial masses or collections are present. The bony calvarium is intact. The visualized paranasal sinuses are unremarkable. The mastoid air cells are clear. IMPRESSION: 1. No acute intracranial abnormality. No CT evidence of mass, acute infarct or intracranial hemorrhage. Dictated by: Dictated on workstation # [id number]
--- NOTE | 2021-05-14 07:36 | Diagnostic Imaging Report ---
PROCEDURE: CT angiography of the chest with contrast. TECHNIQUE: Multiple contiguous axial images were obtained through the chest after uneventful bolus administration of intravenous contrast. 3D reconstructed CTA MIP acquisitions were also performed. Auto Exposure Controls were utilized during the CT exam to meet ALARA standards for radiation dose reduction. INDICATION: Dizziness with shortness of breath. History of Covid. FINDING: Good opacification of the aorta and pulmonary arteries. No evidence for aortic aneurysm or dissection. Pulmonary arteries are well-opacified with no filling defects to suggest pulmonary emboli. The lungs are well-aerated and clear. No mediastinal or hilar adenopathy of pathologic size. No pleural effusions or pericardial effusions. IMPRESSION: No acute abnormalities demonstrated. These findings are in agreement with the preliminary report. Dictated by: Dictated on workstation # [id number]
== END 2021-05-14 01:20 | disposition home or self-care (01) ==
LOC: EDUNIT# 22:23 → ER 22:26
DX: H65.92 Unspecified nonsuppurative otitis media, left ear (principal); Q85.00 Neurofibromatosis, unspecified; R42 Dizziness and giddiness; G89.29 Other chronic pain; R51.9 Headache, unspecified; Z20.822 Contact with and (suspected) exposure to COVID-19
CPT/HCPCS: 36415; 70450; 71045; 71275; 80053; 80306; 81000; 82150; 83690; 83735; 83880; 84703; 85025; 85379; 85610; 85730; 87635; 87804; 93005; 93041

== ENCOUNTER → 2021-05-26 | Outpatient (CLI) | payer OTHER ==
[~2021-05-26] MED LIST changes: +FLUT9.9S NS; +LORA1TAB59 PO; +MECL-149 PO; +SCOP1PAT10 TD
== END ==
LOC: ORTHO 10:18
PROVIDERS: ATTEND Orthopaedic Surgery
DX: S82.844D Nondisplaced bimalleolar fracture of right lower leg, subsequent encounter for closed fracture with routine healing (principal); S93.431D Sprain of tibiofibular ligament of right ankle, subsequent encounter; X58.XXXD Exposure to other specified factors, subsequent encounter

== ENCOUNTER → 2021-05-26 | Outpatient (CLI) | payer OTHER ==
--- NOTE | 2021-05-26 13:08 | Diagnostic Imaging Report ---
INDICATION: Followup of the bimalleolar fracture. COMPARISON: 05/12/2021. EXAMINATION: Right ankle, 3 views. FINDINGS: The distal fibular plate and bone screws are again noted, unchanged. The syndesmotic screws are intact. The ankle mortise is in good alignment with good preservation of the joint space. The articulating surfaces are smooth. There has been bony bridging callus develop along the fibula. IMPRESSION: No hardware complication is noted. There has been progressive healing of the distal fibular shaft fracture. Dictated by: Dictated on workstation # [id number]
== END ==
LOC: ORTHO 09:53
PROVIDERS: ATTEND Orthopaedic Surgery
DX: S82.844D Nondisplaced bimalleolar fracture of right lower leg, subsequent encounter for closed fracture with routine healing (principal); X58.XXXD Exposure to other specified factors, subsequent encounter
CPT/HCPCS: 73610

== ENCOUNTER → 2021-06-09 | Outpatient (RCR) | payer SELFPAY | END | disposition home or self-care (01) | PROVIDERS: ATTEND Orthopaedic Surgery | DX: S82.844D Nondisplaced bimalleolar fracture of right lower leg, subsequent encounter for closed fracture with routine healing (principal); Z98.890 Other specified postprocedural states; X58.XXXD Exposure to other specified factors, subsequent encounter ==

== ENCOUNTER → 2021-06-16 | Outpatient (CLI) | payer SELFPAY ==
--- NOTE | 2021-06-16 10:05 | Diagnostic Imaging Report ---
INDICATION: Follow-up right ankle fracture. TIME OF EXAM: 9:38 AM Correlation is made with prior ankle radiographs from 05/26/2021. 3 views of the right ankle were obtained. Alignment is normal. Ankle mortise is well-maintained. The talar dome is smooth. There is a lateral plate and numerous screws transfixing distal fibula. There are 2 fully threaded syndesmotic screws. The orthopedic hardware is intact. There is no fracture or loosening of the orthopedic hardware. Bony structures are intact and show normal anatomic alignment. IMPRESSION: Satisfactory postoperative changes to the right ankle. Overall alignment is anatomic. No acute feature is detected. Dictated by: Dictated on workstation # [id number]
== END ==
LOC: ORTHO 09:26
PROVIDERS: ATTEND Orthopaedic Surgery
DX: S82.844A Nondisplaced bimalleolar fracture of right lower leg, initial encounter for closed fracture (principal); X58.XXXA Exposure to other specified factors, initial encounter
CPT/HCPCS: 73610

== ENCOUNTER 2021-07-04 10:40 | Outpatient (RCR) | payer SELFPAY | END 2021-07-04 11:15 | disposition home or self-care (01) | PROVIDERS: ATTEND Orthopaedic Surgery | DX: S82.844D Nondisplaced bimalleolar fracture of right lower leg, subsequent encounter for closed fracture with routine healing (principal); Z98.890 Other specified postprocedural states; W19.XXXD Unspecified fall, subsequent encounter ==

== ENCOUNTER → 2021-07-07 | Outpatient (CLI) | payer SELFPAY | LOC: ORTHO 10:00 | PROVIDERS: ATTEND Orthopaedic Surgery | DX: S82.841D Displaced bimalleolar fracture of right lower leg, subsequent encounter for closed fracture with routine healing (principal); X58.XXXD Exposure to other specified factors, subsequent encounter ==